=== PATIENT | male | born 1955 | race African-American/Black ===

== ENCOUNTER 2017-03-16 21:03 | Emergency (ER) | payer OTHER ==
[~2017-03-16] VITALS: Ht 185.4 cm; Wt 102.5 kg
[2017-03-16 21:18] VITALS: Ht 185.4 cm; Wt 102.5 kg
[2017-03-16] MEDS ORDERED: CLOT30CR24 TOP (23:13)
--- NOTE | 2017-03-16 23:16 | ERD ---
ER Documentation Chief Complaint Date/Time DATE: 03/16/17 TIME: 23:14 Chief Complaint Neck abscess poss bug bite, On Antibiotics already getting worst HPI 61-year-old male presents with a rash on his posterior neck that he has had for 3 days. The rash has gotten larger and it is very itchy. Denies fever. He saw his primary care doctor who gave him a prescription for Bactrim which he is taking but it is not getting any better. Denies fever. Denies any nausea or vomiting. ROS All systems reviewed and are negative except as per history of present illness. Medications Home Meds Active Scripts Clotrimazole* (Clotrimazole* AF) 1% - 30 Gm Cream.gm., 1 APPLIC TOP BID for 7 Days, #30 TUB Prov:SANJEEV DEVI PA-C 03/16/17 Allergies Allergies: Coded Allergies: No Known Allergy (Unverified , 03/16/17) PMhx/Soc Medical and Surgical Hx: pt denies Medical Hx, pt denies Surgical Hx Hx Alcohol Use: No Hx Substance Use: No Hx Tobacco Use: No Smoking Status: Never smoker FmHx Family History: No diabetes Physical Exam Vitals Vital Signs Date Time Temp Pulse Resp B/P Pulse Ox O2 Delivery O2 Flow Rate FiO2 03/16/17 21:18 97.7 77 20 139/70 96 Physical Exam General: well developed, well nourished, alert, nontoxic, no distress Head: normocephalic, atraumatic Neck: Supple, nontender, no lymphadenopathy, no midline tenderness Respiratory: Clear to auscaultation bilaterally, speaks in full sentences, no use of accesory muscles or labored breathing, no rales, ronchi, or wheezing Cardiovascular: RRR, No murmurs Skin: Well demarcated plaque like slightly raised rash on the posterior neck, non-erythematous, no warmth, no pustules, no papules, no vesicles, slightly boggy Procedures/MDM This patient has a rash on the back of his neck that is most consistent with tinea corporis. Does not appear to be infectious in nature at this time or cellulitis or abscess formation. He is discharged with clotrimazole cream. Recommended this patient follow up with her primary care doctor within 48 hours or return to the emergency room for any worsening of symptoms. However this time I do believe there is suitable for outpatient management. I answered all their questions and they agreed with the plan and were discharged home. Departure Diagnosis: Primary Impression: Tinea corporis Condition: Stable Patient Instructions: Tinea Corporis Additional Instructions: Call your primary care doctor TOMORROW for an appointment during the next 1-2 days.See the doctor sooner or return here if your condition worsens before your appointment time. SANJEEV DEVI PA-C March 16, 2017 23:16
== END 2017-03-16 23:30 | disposition home or self-care (01) ==
LOC: FTE 21:03
DX: R07.89 Other chest pain (principal)